=== PATIENT | male | born 1960 | race African-American/Black ===

== ENCOUNTER 2021-05-09 12:18 | Day surgery (SDC) | payer MEDICAID ==
[~2021-05-09] VITALS: Ht 172.8 cm; Wt 135.4 kg
[~2021-05-09 12:18] MED LIST: BP MED; NAPROSYN500 MG PO; PERCOCET 325 MG1 TA2 PO
[2021-05-09 13:26] LABS: HEMATOCRIT 47.2 % (42.0-52.0); HEMOGLOBIN 16.4 g/dl (13.5-18.0); MEAN CELL VOLUME 86 fl (80.0-100.0); MEAN CORPUSCULAR HEMOGLOBIN 30 pg (27-31); MEAN CORPUSCULAR HGB CONC 35 g/dl (33.0-37.0); MEAN PLATELET VOLUME 9.5 fl (7.4-10.4); PLATELET COUNT 248 K/mm3 (130-400); RED BLOOD COUNT 5.49 M/mm3 (4.20-5.60); REDCELL DISTRIBUTION WIDTH-CV 13.3 % (11.5-14.5)
[2021-05-09 13:36] LABS: INR 1.2 (0.8-3.0); PROTHROMBIN TIME 13.4 SECONDS (9.7-12.8)
[2021-05-09 13:39] LABS: PARTIAL THROMBOPLASTIN TIME 36.2 SECONDS (26.0-37.0)
[2021-05-09] MEDS ORDERED: COZAAR 50MG50 MG/TAB PO (13:43)
[2021-05-09] MEDS ORDERED: LEXAPRO 10MG10 MG PO (13:44)
[2021-05-09] MEDS ORDERED: PLAVIX 75MG TAB75 MG PO (13:45)
[2021-05-09] MEDS ORDERED: IMDUR 30MG30 MG/TAB PO (13:45)
[2021-05-09 13:46] LABS: CALCIUM 9.5 mg/dL (8.4-10.2); CREATININE, serum 1.09 mg/dL (0.72-1.25); POTASSIUM 4.2 mmol/L (3.5-4.5)
[2021-05-09] MEDS ORDERED: CRESTOR20 MG PO (13:46)
[2021-05-09] MEDS ORDERED: GLUCOPHAGE1000 MG PO (13:47)
[2021-05-09] MEDS ORDERED: NORCO 325 MG-51 TAB PO (13:47)
[2021-05-09] MEDS ORDERED: ASPI325T6 PO (13:47)
[2021-05-09] MEDS ORDERED: ZYLOPRIM 300MG300 MG PO (13:48)
[2021-05-09] MEDS ORDERED: NEURONTIN300 MG/CAP PO (13:49)
[2021-05-09] MEDS ORDERED: NITROSTAT0.4 MG/TAB SL (13:49)
[2021-05-09] MEDS ORDERED: ATARAX 25MG25 MG/TAB PO (13:49)
[2021-05-09] MEDS ORDERED: COREG12.5 MG PO (13:51)
[2021-05-09 14:34] VITALS: BP 164/106; PULSE 82; TEMP 98.1
--- NOTE | 2021-05-09 16:08 | NUR ---
Very upset about having wait for procedure. Dr. Draper in to talk with pt. INT discontinued intact. Dressing and calling his ride to pick him up.
== END 2021-05-09 16:10 | disposition home or self-care (01) ==
LOC: COL.CAR 12:18
PROVIDERS: Internal Medicine Interventional Cardiology
DX: I25.10 Atherosclerotic heart disease of native coronary artery without angina pectoris (principal); I10 Essential (primary) hypertension; F17.210 Nicotine dependence, cigarettes, uncomplicated; E11.9 Type 2 diabetes mellitus without complications; E03.9 Hypothyroidism, unspecified; Z53.8 Procedure and treatment not carried out for other reasons; Z79.82 Long term (current) use of aspirin; Z79.899 Other long term (current) drug therapy; Z79.4 Long term (current) use of insulin; Z79.84 Long term (current) use of oral hypoglycemic drugs; Z79.891 Long term (current) use of opiate analgesic; Z79.02 Long term (current) use of antithrombotics/antiplatelets; Z86.16 Personal history of COVID-19
CPT/HCPCS: J7030

== ENCOUNTER 2021-07-05 10:27 | Day surgery (SDC) | payer MEDICAID ==
[~2021-07-05] VITALS: Ht 172.7 cm; Wt 134.4 kg
[2021-07-05] VITALS (9 sets, daily range): BP systolic 132–165; BP diastolic 68–117; PULSE 60–77; TEMP 97.9
[~2021-07-05 10:27] MED LIST changes: +ASPI325T6 PO; +ATARAX 25MG25 MG/TAB PO; +COREG12.5 MG PO; +COZAAR 50MG50 MG/TAB; +CRESTOR20 MG PO; +GLUCOPHAGE1000 MG PO; +IMDUR 30MG30 MG/TAB PO; +LEXAPRO 10MG10 MG PO; +NEURONTIN300 MG/CAP PO; +NITROSTAT0.4 MG/TAB SL; +NORCO 325 MG-51 TAB PO; +PLAVIX 75MG TAB75 MG PO; +ZYLOPRIM 300MG300 MG PO
[2021-07-05 11:09] LABS: HEMOGLOBIN 16.3 g/dl (13.5-18.0); MEAN CELL VOLUME 90 fl (80.0-100.0); MEAN CORPUSCULAR HEMOGLOBIN 30 pg (27-31); MEAN CORPUSCULAR HGB CONC 33 g/dl (33.0-37.0); PLATELET COUNT 234 K/mm3 (130-400); RED BLOOD COUNT 5.47 M/mm3 (4.20-5.60); REDCELL DISTRIBUTION WIDTH-CV 13.8 % (11.5-14.5)
[2021-07-05 11:21] LABS: INR 1.1 (0.8-3.0); PROTHROMBIN TIME 12.6 SECONDS (9.7-12.8)
[2021-07-05 11:24] LABS: PARTIAL THROMBOPLASTIN TIME 37.5 SECONDS (26.0-37.0)
[2021-07-05 11:25] LABS: CALCIUM 9.2 mg/dL (8.4-10.2); CREATININE, serum 1.18 mg/dL (0.72-1.25); POTASSIUM 4.2 mmol/L (3.5-4.5)
--- NOTE | 2021-07-05 12:03 | NUR ---
SEE MERGE FOR ALL MEDICATION ADMINISTRATION TIMES/DOSAGES AND INTRA/POST SEDATION ASSESSMENTS.
[2021-07-05] MEDS ORDERED: ISOSORBIDE MON120 MG PO (14:35)
--- NOTE | 2021-07-05 14:45 | NUR ---
Report from Salina GANT. Transferred from [facility] [employer] by bed. Alert and oriented, denies pain at this time. Right Tband with 16 cc air CD&I, good pulses and cap refill < 3 secs noted. BP continues to be high
[2021-07-05] MEDS ORDERED: COZAAR100 MG PO (15:22)
--- NOTE | 2021-07-05 15:30 | NUR ---
20 mg Apresoline given IV over two minutes. Will monitor
--- NOTE | 2021-07-05 17:00 | NUR ---
16 cc air released from right Tband and drsg applied. INT discontinued intact. Ambulated to bathroom with steady gait.
--- NOTE | 2021-07-05 17:20 | NUR ---
Discharge instructions given. transferred to private car by morgan
== END 2021-07-05 17:30 | disposition home or self-care (01) ==
LOC: COL.CAR 10:27
PROVIDERS: Internal Medicine Interventional Cardiology
DX: I25.10 Atherosclerotic heart disease of native coronary artery without angina pectoris (principal); I10 Essential (primary) hypertension; E78.5 Hyperlipidemia, unspecified; Z79.899 Other long term (current) drug therapy; Z95.5 Presence of coronary angioplasty implant and graft
CPT/HCPCS: C1769; J0360; J1644; J2250; J3010; Q9967

== ENCOUNTER → 2021-08-05 | Outpatient (CLI) | payer MEDICAID ==
[~2021-08-05] MED LIST changes: +COZAAR100 MG PO; +ISOSORBIDE MON120 MG PO
[2021-08-05 15:27] LABS: CALCIUM 9.6 mg/dL (8.4-10.2); CREATININE, serum 1.03 mg/dL (0.72-1.25); POTASSIUM 3.9 mmol/L (3.5-4.5); TROPONIN-I 0.017 ng/mL (0.00-0.033)
== END ==
LOC: ZCOL.LAB 15:05
PROVIDERS: Nurse Practitioner
DX: I20.9 Angina pectoris, unspecified (principal)

== ENCOUNTER 2021-12-25 06:40 | Emergency (ER) | payer MEDICAID ==
[~2021-12-25] VITALS: Ht 172.7 cm; Wt 124.5 kg
[2021-12-25 06:47] VITALS: TEMP 98.1
[2021-12-25 07:28] LABS: BASO % 0.3 % (0.0-2.0); EOS % 0.4 % (0.0-4.0); GRAN # 4.1 K/mm3 (1.4-6.5); GRAN % 61.7 % (42.2-75.2); HEMOGLOBIN 16.2 g/dl (13.5-18.0); LYMPH # 2.1 K/mm3 (1.2-3.4); LYMPH % 30.8 % (20.0-51.0); MEAN CELL VOLUME 92 fl (80.0-100.0); MEAN CORPUSCULAR HEMOGLOBIN 32 pg (27-31); MEAN CORPUSCULAR HGB CONC 35 g/dl (33.0-37.0); MEAN PLATELET VOLUME 9.7 fl (7.4-10.4); MONO # 0.5 K/mm3 (0.1-0.6); MONO % 6.7 % (1.7-9.3); PLATELET COUNT 201 K/mm3 (130-400); RED BLOOD COUNT 5.13 M/mm3 (4.20-5.60); REDCELL DISTRIBUTION WIDTH-CV 13.3 % (11.5-14.5)
[2021-12-25 07:46] LABS: ALBUMIN 3.2 gm/dL (3.4-4.8); BILIRUBIN,TOTAL 0.4 mg/dL (0.2-1.2); CALCIUM 9.4 mg/dL (8.4-10.2); CREATININE, serum 1.06 mg/dL (0.72-1.25); POTASSIUM 4.1 mmol/L (3.5-4.5); TOTAL PROTEIN 6.8 gm/dL (6.2-8.1)
[2021-12-25 07:57] LABS: TROPONIN-I 0.039 ng/mL (0.00-0.033)
[2021-12-25 10:43] VITALS: BP 177/109; PULSE 79
== END 2021-12-25 10:43 | disposition home or self-care (01) ==
LOC: COL.ER 06:40
PROVIDERS: Personal Emergency Response Attendant
DX: R07.89 Other chest pain (principal); G47.33 Obstructive sleep apnea (adult) (pediatric); R77.8 Other specified abnormalities of plasma proteins; Z95.5 Presence of coronary angioplasty implant and graft; Z28.310 Unvaccinated for COVID-19